=== PATIENT | female | born 1990 | race Caucasian/White ===

== ENCOUNTER 2017-11-01 17:12 | Emergency (ER) | payer OTHER ==
[2017-11-01 17:17] VITALS: BP 135/74
[2017-11-01] MEDS ORDERED: AMPH20TA18 PO (17:17)
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
[2017-11-01] MEDS ORDERED: APAP/HYDROCODONE 325/5 TAB PO ONE (17:30)
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
[2017-11-01] MEDS ORDERED: HYDR-385 PO (18:29)
[2017-11-01] MEDS ORDERED: ACET/HYDROC 5/325MG TH ER ONLY 2 TAB/BOTTLE PO ONE (18:35)
== END 2017-11-01 18:41 | disposition home or self-care (01) ==
LOC: ER 17:29
DX: S43.402A Unspecified sprain of left shoulder joint, initial encounter (principal); S50.12XA Contusion of left forearm, initial encounter; V18.0XXA Pedal cycle driver injured in noncollision transport accident in nontraffic accident, initial encounter; Y93.55 Activity, bike riding
CPT/HCPCS: 73030; 73060; 73090; 99283; A4565; 99282